=== PATIENT | male | born 1975 | race Caucasian/White ===

== ENCOUNTER 2021-07-26 13:31 | Observation (INO) | payer OTHER ==
[2021-07-26] MEDS ORDERED: Aspirin Chewable 81 MG TAB ONE (14:06)
[2021-07-26] MEDS ORDERED: Morphine 4 MG/ML VIAL ONE ×2 (14:06→16:26)
[2021-07-26] MEDS ORDERED: Ondansetron PF 4 MG/2 ML Vial ONE (14:06)
[2021-07-26 14:11] LABS: #Basophils 0.1 thou/uL (0.0-0.2); #Eosinphils 0.3 thou/uL (0.0-0.7); #Monocytes 0.5 thou/uL (0.11-0.59); #Neutrophils 5.3 thou/uL (1.40-6.50); %Eosinophils 3.4 % (0.0-10.0); %Lymphocytes 24.6 % (21.0-51.0); %Monocytes 6.3 % (0.0-10.0); %Neutrophils 64.8 % (42.0-75.0); Hemoglobin 15.1 g/dL (14.0-18.0); Mean Corpuscular HGB CONC 33.6 g/dL (32.0-36.0); Mean Corpuscular Hemoglobin 30.2 pg (27.0-31.0); Mean Platelet Volume 7.5 fL (7.4-10.4); Platelet Count 283 thou/uL (130-400); RBC Distribution Width 11.4 % (11.5-14.5); Red Blood Cell (RBC) Count 5.01 mill/uL (4.70-6.10); White Blood Cell (WBC) Count 8.1 thou/uL (4.8-10.8)
[2021-07-26 14:26] LABS: ALT (SGPT) 27 U/L (8-55); AST (SGOT) 25 U/L (5-34); Albumin 4.8 g/dL (3.5-5.0); Alkaline Phosphatase 146 U/L (40-110); Anion Gap 16 mmol/L (10-20); BUN (Urea Nitrogen) 18 mg/dL (8.9-20.6); Bilirubin, Total 0.9 mg/dL (0.2-1.2); Calc. Creatinine Clearance 0 mL/min (70-130); Calcium 10.1 mg/dL (7.8-10.44); Carbon Dioxide 22 mmol/L (22-29); Chloride 105 mmol/L (98-107); Globulin 3.3 g/dL (2.4-3.5); Glucose 92 mg/dL (70-105); Lipase 14 U/L (8-78); Potassium 4.3 mmol/L (3.5-5.1); Protein, Total 8.1 g/dL (6.0-8.3); Sodium 139 mmol/L (136-145)
[2021-07-26] MEDS ORDERED: Communication Order-Pharmacy FS SCH (17:30)
[2021-07-26] MEDS ORDERED: Acetaminophen 325 MG TAB PO PRN (20:00)
[2021-07-26] MEDS ORDERED: Ondansetron ODT 4 MG TAB SL PRN (20:00)
[2021-07-26] MEDS ORDERED: Ondansetron PF 4 MG/2 ML Vial IVP PRN (20:00)
[2021-07-26] MEDS ORDERED: Morphine 2 MG/ML VIAL SLOW IVP PRN (20:09)
[2021-07-26] MEDS ORDERED: Albuterol Sulfate 2.5 mg/3 ml Neb NEB PRN (20:27)
[2021-07-26] MEDS ORDERED: Acetaminophen 650 MG Suppository PR PRN (20:34)
[2021-07-26 20:41] LABS: Troponin I Less than 0.010 ng/mL (< 0.028)
[2021-07-26] MEDS: Nitroglycerin 0.4 MG TAB (25 Tab Bottle) SL PRN ×2 (20:58→21:10)
[2021-07-26 21:48] LABS: Magnesium 2.3 mg/dL (1.6-2.6)
[2021-07-26 23:10] VITALS: BMI 28.0
[2021-07-27] MEDS: Mag-Al 1200 mg/1200 mg/30 ML UDCUP PO SCH ×3 (00:55→12:06)
[2021-07-27 05:20] LABS: #Basophils 0.1 thou/uL (0.0-0.2); #Eosinphils 0.4 thou/uL (0.0-0.7); #Lymphocytes 1.8 thou/uL (1.20-3.40); #Monocytes 0.5 thou/uL (0.11-0.59); #Neutrophils 3.1 thou/uL (1.40-6.50); %Eosinophils 6.5 % (0.0-10.0); %Lymphocytes 31.2 % (21.0-51.0); %Monocytes 9.2 % (0.0-10.0); %Neutrophils 52.1 % (42.0-75.0); Hemoglobin 14.5 g/dL (14.0-18.0); Mean Corpuscular HGB CONC 34.7 g/dL (32.0-36.0); Mean Corpuscular Hemoglobin 31.5 pg (27.0-31.0); Mean Corpuscular Volume 90.7 fL (78.0-98.0); Mean Platelet Volume 7.9 fL (7.4-10.4); Platelet Count 256 thou/uL (130-400); RBC Distribution Width 11.7 % (11.5-14.5); Red Blood Cell (RBC) Count 4.59 mill/uL (4.70-6.10); White Blood Cell (WBC) Count 5.9 thou/uL (4.8-10.8)
[2021-07-27 05:41] LABS: Anion Gap 13 mmol/L (10-20); BUN (Urea Nitrogen) 20 mg/dL (8.9-20.6); Calc. Creatinine Clearance 80 mL/min (70-130); Calcium 9.7 mg/dL (7.8-10.44); Carbon Dioxide 25 mmol/L (22-29); Chloride 105 mmol/L (98-107); Glucose 90 mg/dL (70-105); Magnesium 2.5 mg/dL (1.6-2.6); Potassium 4.2 mmol/L (3.5-5.1); Sodium 139 mmol/L (136-145)
[2021-07-27] MEDS ORDERED: Lidocaine 1% (PF) 30 ML VIAL ONE (06:33)
[2021-07-27] MEDS ORDERED: Fentanyl 100 MCG/2 ML VIAL ONE (07:00)
[2021-07-27] MEDS ORDERED: Midazolam HCl 2 mg/2 ml Vial ONE (07:00)
[2021-07-27] MEDS ORDERED: Morphine 4 MG/ML VIAL ONE (07:43)
[2021-07-27] MEDS ORDERED: Sodium Chloride 0.9% 200 ML IV PRN (07:50)
[2021-07-27] MEDS ORDERED: Acetaminophen/Codeine 30-300mg Tablet PO PRN ×2 (07:50)
[2021-07-27] MEDS ORDERED: Nitroglycerin 0.4 MG TAB (25 Tab Bottle) SL PRN (07:50)
[2021-07-27] MEDS ORDERED: Aspirin 81 mg Enteric Coated Tablet PO SCH (09:00)
[2021-07-27] MEDS ORDERED: Iopamidol 370 76% 100 ML VIAL ONE (09:08)
[2021-07-27 12:19] LABS: SARS-CoV-2 PCR by NAA Not Detected (NotDetected)
[2021-07-27 15:39] VITALS: BP 106/67; TEMP 97.9
[2021-07-27] MEDS ORDERED: Atorvastatin Calcium 20 MG TAB PO SCH (21:00)
== END 2021-07-27 17:00 | disposition home or self-care (01) ==
LOC: ERS 13:31 → ERHOLD 17:28 → NEURO 19:50
PROVIDERS: ADMIT Emergency Medicine; ATTEND Emergency Medicine
PROC: 4A023N7 Measurement of Cardiac Sampling and Pressure, Left Heart, Percutaneous Approach (ICD-10-PCS; principal; 2021-07-27)
PROC: B2111ZZ Fluoroscopy of Multiple Coronary Arteries using Low Osmolar Contrast (ICD-10-PCS; 2021-07-27)
DX: R07.89 Other chest pain (principal); R55 Syncope and collapse; I25.10 Atherosclerotic heart disease of native coronary artery without angina pectoris; I12.9 Hypertensive chronic kidney disease with stage 1 through stage 4 chronic kidney disease, or unspecified chronic kidney disease; N18.9 Chronic kidney disease, unspecified; J45.909 Unspecified asthma, uncomplicated; Q66.89 Other specified congenital deformities of feet; G62.9 Polyneuropathy, unspecified; R94.31 Abnormal electrocardiogram [ECG] [EKG]; Z79.82 Long term (current) use of aspirin; Z79.899 Other long term (current) drug therapy; Z20.822 Contact with and (suspected) exposure to COVID-19
CPT/HCPCS: 36415; 71045; 80048; 80053; 83690; 83735; 84484; 85025; 93005; 93458; 94760; 96374; 96375; 96376; 99152; 99153; G0378; J2001; J2250; J2270; J2405; J3010; Q9967; U0003; U0005

== ENCOUNTER 2021-09-26 13:39 | Emergency (ER) | payer OTHER ==
[2021-09-26 14:14] LABS: #Eosinphils 0.3 thou/uL (0.0-0.7); #Lymphocytes 1.6 thou/uL (1.20-3.40); #Monocytes 0.5 thou/uL (0.11-0.59); %Basophils 0.6 % (0.0-1.0); %Eosinophils 5.3 % (0.0-10.0); %Lymphocytes 25.1 % (21.0-51.0); %Monocytes 7.3 % (0.0-10.0); %Neutrophils 61.8 % (42.0-75.0); Hemoglobin 15.2 g/dL (14.0-18.0); Mean Corpuscular HGB CONC 34.4 g/dL (32.0-36.0); Mean Corpuscular Hemoglobin 30.9 pg (27.0-31.0); Mean Corpuscular Volume 89.8 fL (78.0-98.0); Mean Platelet Volume 8.4 fL (7.4-10.4); Platelet Count 244 thou/uL (130-400); RBC Distribution Width 11.9 % (11.5-14.5); Red Blood Cell (RBC) Count 4.91 mill/uL (4.70-6.10); White Blood Cell (WBC) Count 6.5 thou/uL (4.8-10.8)
[2021-09-26 14:43] LABS: ALT (SGPT) 43 U/L (8-55); AST (SGOT) 32 U/L (5-34); Albumin 4.5 g/dL (3.5-5.0); Alkaline Phosphatase 148 U/L (40-110); BUN (Urea Nitrogen) 17 mg/dL (8.9-20.6); Bilirubin, Total 0.7 mg/dL (0.2-1.2); Calc. Creatinine Clearance 0 mL/min (70-130); Calcium 9.7 mg/dL (7.8-10.44); Carbon Dioxide 23 mmol/L (22-29); Chloride 105 mmol/L (98-107); Estimated GFR 79; Globulin 2.9 g/dL (2.4-3.5); Glucose 103 mg/dL (70-105); Lipase 15 U/L (8-78); Potassium 3.8 mmol/L (3.5-5.1); Protein, Total 7.4 g/dL (6.0-8.3); Sodium 140 mmol/L (136-145)
[2021-09-26 15:11] LABS: Anion Gap 16 mmol/L (10-20)
== END 2021-09-26 15:37 | disposition home or self-care (01) ==
LOC: ERS 13:39
DX: I20.9 Angina pectoris, unspecified (principal); I10 Essential (primary) hypertension
CPT/HCPCS: 36415; 71045; 80053; 83690; 83880; 84484; 85025; 93005

== ENCOUNTER 2021-09-29 15:01 | Emergency (ER) | payer OTHER ==
[2021-09-29 15:54] LABS: #Eosinphils 0.4 thou/uL (0.0-0.7); #Lymphocytes 2.2 thou/uL (1.20-3.40); #Monocytes 0.5 thou/uL (0.11-0.59); %Basophils 0.7 % (0.0-1.0); %Eosinophils 5.3 % (0.0-10.0); %Lymphocytes 30.3 % (21.0-51.0); %Monocytes 7.2 % (0.0-10.0); %Neutrophils 56.6 % (42.0-75.0); Mean Corpuscular HGB CONC 33.8 g/dL (32.0-36.0); Mean Corpuscular Hemoglobin 30.9 pg (27.0-31.0); Mean Corpuscular Volume 91.4 fL (78.0-98.0); Mean Platelet Volume 8.8 fL (7.4-10.4); Platelet Count 230 thou/uL (130-400); RBC Distribution Width 12.1 % (11.5-14.5); Red Blood Cell (RBC) Count 4.84 mill/uL (4.70-6.10); White Blood Cell (WBC) Count 7.1 thou/uL (4.8-10.8)
[2021-09-29 16:19] LABS: ALT (SGPT) 34 U/L (8-55); AST (SGOT) 33 U/L (5-34); Alkaline Phosphatase 133 U/L (40-110); Anion Gap 14 mmol/L (10-20); BUN (Urea Nitrogen) 13 mg/dL (8.9-20.6); Bilirubin, Total 0.7 mg/dL (0.2-1.2); Calc. Creatinine Clearance 0 mL/min (70-130); Calcium 9.3 mg/dL (7.8-10.44); Carbon Dioxide 24 mmol/L (22-29); Chloride 106 mmol/L (98-107); Estimated GFR 81; Globulin 3.3 g/dL (2.4-3.5); Glucose 85 mg/dL (70-105); Potassium 4.4 mmol/L (3.5-5.1); Protein, Total 7.3 g/dL (6.0-8.3); Sodium 140 mmol/L (136-145)
[2021-09-29] MEDS ORDERED: Acetaminophen 500 MG TAB ONE (17:00)
== END 2021-09-29 17:37 | disposition home or self-care (01) ==
LOC: ERS 15:01
DX: R07.9 Chest pain, unspecified (principal); E78.5 Hyperlipidemia, unspecified; I10 Essential (primary) hypertension
CPT/HCPCS: 80053; 84484; 85025; 93005